=== PATIENT | male | born 1985 | race Caucasian/White ===

== ENCOUNTER 2019-07-27 19:07 | Emergency (ER) | payer SELFPAY ==
[2019-07-27] MEDS ORDERED: Lidocaine 1% 30 ML SDV INJECT ONE (19:10)
--- NOTE | 2019-07-27 19:16 | EDM.PDOC ---
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 Right Face/Facial Pain Score (Numeric/FACES): 5 - Related Data Allergies Allergy/AdvReac Type Severity Reaction Status Date / Time No Known Allergies Allergy Verified 07/27/19 19:10 Home Meds: Home Meds . [No Known Home Meds] 07/27/19 [History] ED ROS GENERAL - Review of Systems Review Of Systems: Comprehensive ROS is negative, except as noted in HPI. ED EXAM, SKIN/RASH Exam: See Below Exam Limited By: No Limitations General Appearance: Alert, WD/WN, Mild Distress, Other (upset) Eye Exam: Bilateral Eye: PERRL (pupils ess ER @ 4mm) Ears: Hearing Grossly Normal Throat/Mouth: Normal Voice, No Airway Compromise Head: Other (right brow 1 1/2") Neck: Non-Tender, Full Range of Motion Respiratory/Chest: No Respiratory Distress Cardiovascular: Regular Rate, Rhythm GI/Abdominal: Soft, Non-Tender Neurological: Alert, Oriented, Normal Cognition, Normal Gait, No Motor/Sensory Deficits Psychiatric: Other (upset) Location, Skin: Face ED SKIN PROCEDURES - Laceration/Wound Repair Right Brow Appearance: Subcutaneous, Linear, Clean Anesthetic Type: Local Local Anesthesia - Lidocaine (Xylocaine): 1% Plain Local Anesthetic Volume: 5cc Skin Prep: Chlorhexidine (Hibiciens) Saline Irrigation (cc's): 20 Exploration/Debridement/Repair: Wound Explored, In a Bloodless Field Closed with: Sutures Lac/Wound length In cm: 3 Suture Size: 4-0 Suture Type: Nylon, Interrupted Sterile Dressing Applied: None Tetanus Status Addressed: Yes Complications: No Course - Vital Signs Last Recorded V/S: Last Vital Signs Temp 37.2 C 07/27/19 19:12 Pulse 120 H 07/27/19 19:12 Resp 20 07/27/19 19:12 BP 141/80 H 07/27/19 19:12 Pulse Ox 100 07/27/19 19:12 - Orders/Labs/Meds Meds: Medications Discontinued Medications Generic Name Dose Route Start Last Admin Trade Name Freq PRN Reason Stop Dose Admin Lidocaine HCl 30 ml 07/27/19 19:10 07/27/19 19:18 Xylocaine-Mpf 1% INJECT 07/27/19 19:11 30 ml ONETIME ONE Administration Departure - Departure Time of Disposition: 19:34 Disposition: Home, Self-Care 01 Condition: Good Clinical Impression: Laceration of brow without complication Qualifiers: Encounter type: initial encounter Qualified Code(s): S01.81XA - Laceration without foreign body of other part of head, initial encounter - Discharge Information Instructions: Sutured Wound Care, [id number] Forms: ED Department Discharge Additional Instructions: 1) keep wound clean and dry 2) ice to swelling 3) wound check if looks infected 4) suture removal 5 to 7 days Sepsis Event Note - Focused Exam Vital Signs: Vital Signs Temp Pulse Resp BP Pulse Ox 07/27/19 19:12 37.2 C 120 H 20 141/80 H 100 Date Exam was Performed: 07/27/19 Time Exam was Performed: 19:34
== END 2019-07-27 19:39 | disposition home or self-care (01) ==
LOC: DL.ED 19:07
DX: S01.81XA Laceration without foreign body of other part of head, initial encounter (principal); W26.9XXA Contact with unspecified sharp object(s), initial encounter
CPT/HCPCS: 12011; 12013; 99282; J2001